=== PATIENT | female | born 2005 | race Hispanic/Latino ===

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

== ENCOUNTER 2023-03-02 13:04 | Emergency (ER) | payer OTHER ==
[~2023-03-02] VITALS: Ht 172.7 cm; Wt 97.2 kg
[2023-03-02] MEDS ORDERED: PRENATAL1 TA1 PO (13:46)
[2023-03-02 17:23] VITALS: BP 130/85
== END 2023-03-02 17:34 | disposition home or self-care (01) ==
LOC: ED 13:04
DX: Z34.90 Encounter for supervision of normal pregnancy, unspecified, unspecified trimester (principal); Z3A.00 Weeks of gestation of pregnancy not specified

== ENCOUNTER 2023-04-09 00:26 | Emergency (ER) | payer OTHER ==
[~2023-04-09] VITALS: Ht 172.7 cm; Wt 95.3 kg
[2023-04-09] VITALS (12 sets, daily range): BP systolic 99–132; BP diastolic 43–72
[~2023-04-09 00:26] MED LIST: PRENATAL1 TA1 PO
[2023-04-09 01:09] LABS: BASO% 0.3 % (0-3); EOS% 1.2 % (0-8); HEMOGLOBIN 13.9 g/dl (12.0-16.0); IMMATURE GRANULOCYTES 0.3 % (0.0-5.0); LYMPH% 25.4 % (15-41); MEAN CELL VOLUME 85.2 fL CALC (80.0-100.0); MEAN CORPUSCULAR HGB 28.2 pG CALC (26.0-32.0); MEAN CORPUSCULAR HGB CONC 33.1 g/dL CAL (32.0-36.0); MONO% 9.5 % (2-13); NEUT# 5.94 thou/uL (2.00-7.15); NEUT% 63.3 % (42-76); RED BLOOD COUNT 4.93 mill/uL (4.20-5.60); RED CELL DISTRI WIDTH 12.6 % (11.5-15.5)
[2023-04-09 01:43] LABS: ALBUMIN 3.9 g/dL (3.2-5.0); ALKALINE PHOSPHATASE 53 u/l (38-126); ANION GAP 14 (6-22 (CALC)); BILIRUBIN, TOTAL 0.3 mg/dL (0.02-1.3); BUN 8 mg/dL (7-17); BUN/CREATININE RATIO 16 (12-20 (CALC)); CHLORIDE 105 mmol/l (95-108); CREATININE 0.5 mg/dL (0.5-1.0); GFR FOR AFR.AMER. > 60 ML/MIN (>=60 (CALC)); GFR OTHER RACES > 60 ML/MIN (>=60 (CALC)); POTASSIUM 3.8 mmol/l (3.5-5.1); SGOT/AST 19 u/l (14-36); SODIUM 136 mmol/l (137-146); TOTAL PROTEIN 6.5 g/dL (6.3-8.2)
[2023-04-09 01:44] LABS: CARBON DIOXIDE 21 mmol/l (22-30)
[2023-04-09 01:53] LABS: URINE BILIRUBIN - DIPSTICK NEGATIVE (NEGATIVE); URINE BLOOD DIPSTICK NEGATIVE (NEGATIVE); URINE COLOR YELLOW; URINE GLUCOSE - DIPSTICK NEGATIVE (NEGATIVE); URINE KETONE NEGATIVE (NEGATIVE); URINE LEUK ESTERASE TRACE (NEGATIVE); URINE PROTEIN - DIPSTICK NEGATIVE (NEG-TRACE); URINE SPECIFIC GRAVITY 1.025; URINE UROBILINOGEN - DIPSTICK 0.2 E.U./dL (0.2)
[2023-04-09 02:00] LABS: URINE NITRITE - DIPSTICK NEGATIVE (Negative)
[2023-04-09 02:32] LABS: BETA-HCG, QUANT(RESULT NUMBER) 135340 mIU/mL
== END 2023-04-09 04:44 | disposition home or self-care (01) ==
LOC: ED 00:26
PROVIDERS: Emergency Medicine
DX: O20.0 Threatened abortion (principal); Z3A.11 11 weeks gestation of pregnancy

== ENCOUNTER 2023-04-26 11:50 | Emergency (ER) | payer SELFPAY ==
[~2023-04-26] VITALS: Ht 172.7 cm; Wt 83.9 kg
[2023-04-26] VITALS (7 sets, daily range): BP systolic 104–138; BP diastolic 68–101
[2023-04-26 12:46] LABS: URINE BILIRUBIN - DIPSTICK NEGATIVE (NEGATIVE); URINE BLOOD DIPSTICK NEGATIVE (NEGATIVE); URINE COLOR YELLOW; URINE GLUCOSE - DIPSTICK NEGATIVE (NEGATIVE); URINE KETONE NEGATIVE (NEGATIVE); URINE PROTEIN - DIPSTICK TRACE mg/dL (NEG-TRACE); URINE UROBILINOGEN - DIPSTICK 0.2 E.U./dL (0.2)
[2023-04-26 12:49] LABS: URINE LEUK ESTERASE MODERATE (NEGATIVE); URINE NITRITE - DIPSTICK NEGATIVE (Negative)
[2023-04-26 12:50] LABS: BASO% 0.4 % (0-3); EOS% 1.3 % (0-8); HEMATOCRIT 42.9 % (37.0-47.0); HEMOGLOBIN 14.3 g/dl (12.0-16.0); IMMATURE GRANULOCYTES 0.4 % (0.0-5.0); LYMPH% 22.8 % (15-41); MEAN CELL VOLUME 84.6 fL CALC (80.0-100.0); MEAN CORPUSCULAR HGB 28.2 pG CALC (26.0-32.0); MEAN CORPUSCULAR HGB CONC 33.3 g/dL CAL (32.0-36.0); MONO% 8.9 % (2-13); NEUT# 4.77 thou/uL (2.00-7.15); NEUT% 66.2 % (42-76); RED BLOOD COUNT 5.07 mill/uL (4.20-5.60); RED CELL DISTRI WIDTH 12.4 % (11.5-15.5)
[2023-04-26 12:51] LABS: URINE BACTERIA MODERATE hpf; URINE EPITHELIAL CELLS MODERATE EPI/hpf (0-FEW)
[2023-04-26] MEDS ORDERED: ZOFRAN4 MG/TAB PO (12:52)
[2023-04-26] MEDS ORDERED: CLOTRIMAZOLE12 VA (12:52)
[2023-04-26 12:53] LABS: ALBUMIN 3.9 g/dL (3.2-5.0); ALKALINE PHOSPHATASE 53 u/l (38-126); ANION GAP 13 (6-22 (CALC)); BILIRUBIN, TOTAL 0.4 mg/dL (0.02-1.3); BUN 4 mg/dL (7-17); BUN/CREATININE RATIO 8 (12-20 (CALC)); CARBON DIOXIDE 21 mmol/l (22-30); CHLORIDE 105 mmol/l (95-108); CREATININE 0.5 mg/dL (0.5-1.0); GFR FOR AFR.AMER. > 60 ML/MIN (>=60 (CALC)); GFR OTHER RACES > 60 ML/MIN (>=60 (CALC)); POTASSIUM 3.8 mmol/l (3.5-5.1); SGOT/AST 22 u/l (14-36); SODIUM 135 mmol/l (137-146); TOTAL PROTEIN 6.5 g/dL (6.3-8.2)
[2023-04-26] MEDS ORDERED: KEFLEX500 MG PO (13:35)
[2023-04-26] MEDS ORDERED: TAM75CAP PO (13:35)
[2023-04-26 13:36] LABS: BETA-HCG, QUANT(RESULT NUMBER) 113090 mIU/mL
== END 2023-04-26 13:58 | disposition home or self-care (01) | DRG 832 ==
LOC: ED 11:50
PROVIDERS: Family Medicine
DX: O99.512 Diseases of the respiratory system complicating pregnancy, second trimester (principal); N39.0 Urinary tract infection, site not specified; O98.812 Other maternal infectious and parasitic diseases complicating pregnancy, second trimester; J10.1 Influenza due to other identified influenza virus with other respiratory manifestations; O23.42 Unspecified infection of urinary tract in pregnancy, second trimester; B37.31 Acute candidiasis of vulva and vagina; O21.9 Vomiting of pregnancy, unspecified; O99.332 Smoking (tobacco) complicating pregnancy, second trimester; F17.200 Nicotine dependence, unspecified, uncomplicated; Z3A.15 15 weeks gestation of pregnancy; Z20.822 Contact with and (suspected) exposure to COVID-19

== ENCOUNTER 2023-05-01 16:56 | Emergency (ER) | payer SELFPAY ==
[~2023-05-01] VITALS: Ht 172.7 cm; Wt 84.0 kg
[~2023-05-01 16:56] MED LIST changes: +CLOTRIMAZOLE12 VA; +KEFLEX500 MG PO; +TAM75CAP PO; +ZOFRAN4 MG/TAB PO
[2023-05-01 17:03] VITALS: BP 125/71
[2023-05-01 17:31] VITALS: BP 103/64
[2023-05-01 18:01] LABS: BASO% 0.4 % (0-3); EOS% 1.1 % (0-8); HEMATOCRIT 40.1 % (37.0-47.0); HEMOGLOBIN 13.5 g/dl (12.0-16.0); IMMATURE GRANULOCYTES 0.4 % (0.0-5.0); LYMPH% 20.6 % (15-41); MEAN CELL VOLUME 83.2 fL CALC (80.0-100.0); MEAN CORPUSCULAR HGB CONC 33.7 g/dL CAL (32.0-36.0); MONO% 10.8 % (2-13); NEUT# 5.66 thou/uL (2.00-7.15); NEUT% 66.7 % (42-76); RED BLOOD COUNT 4.82 mill/uL (4.20-5.60); RED CELL DISTRI WIDTH 12.5 % (11.5-15.5)
[2023-05-01 18:32] LABS: URINE BILIRUBIN - DIPSTICK NEGATIVE (NEGATIVE); URINE BLOOD DIPSTICK NEGATIVE (NEGATIVE); URINE COLOR YELLOW; URINE GLUCOSE - DIPSTICK NEGATIVE (NEGATIVE); URINE KETONE NEGATIVE (NEGATIVE); URINE LEUK ESTERASE NEGATIVE (NEGATIVE); URINE PROTEIN - DIPSTICK NEGATIVE (NEG-TRACE); URINE SPECIFIC GRAVITY >=1.030; URINE UROBILINOGEN - DIPSTICK 0.2 E.U./dL (0.2)
[2023-05-01 18:35] LABS: URINE NITRITE - DIPSTICK NEGATIVE (Negative)
[2023-05-01 19:06] VITALS: BP 103/64
== END 2023-05-01 19:14 | disposition home or self-care (01) | DRG 998 ==
LOC: ED 16:56
PROVIDERS: Family Medicine
DX: O09.30 Supervision of pregnancy with insufficient antenatal care, unspecified trimester (principal); N39.0 Urinary tract infection, site not specified; O98.819 Other maternal infectious and parasitic diseases complicating pregnancy, unspecified trimester; B37.31 Acute candidiasis of vulva and vagina; O23.40 Unspecified infection of urinary tract in pregnancy, unspecified trimester; Z3A.00 Weeks of gestation of pregnancy not specified